=== PATIENT | female | born 1965 | race Two or more races ===

== ENCOUNTER 2022-04-15 12:20 | Outpatient (CLI) | payer OTHER | END 2022-04-15 12:30 | disposition home or self-care (01) | LOC: PPH VACUNA 12:20 | PROVIDERS: ATTEND Emergency Medicine Pediatric Emergency Medicine | DX: Z23 Encounter for immunization (principal) ==

== ENCOUNTER 2023-11-22 12:40 | Emergency (ER) | payer OTHER ==
[~2023-11-22] VITALS: Ht 160 cm; Wt 65.8 kg
[2023-11-22 15:15] LABS: URINE APPEARANCE Clear; URINE BILIRRUBIN Negative (NEGATIVE); URINE BLOOD Negative; URINE COLOR Yellow; URINE GLUCOSE Negative (NEGATIVE); URINE LEUKOCYTE Moderate; URINE NITRATE Negative; URINE PROTEIN Negative (NEGATIVE); URINE UROBILINOGEN 0.2 E.U./dl
[2023-11-22 15:18] LABS: URINE BACTERIA 512.7 uL (0.0-1933); URINE EPITHELIAL CELLS 12.6 uL (0.0-38.8); URINE RBC 2.8 uL (0.0-20.8); URINE WBC 68.7 uL (0.0-23.2)
[2023-11-22 15:18] LABS: HEMATOCRIT 42.9 % (36.0-45.00); HEMOGLOBIN 15.2 g/dL (12.0-15.00); MEAN CORPUSCULAR HEMOGLOBIN 36.6 pg (27.00-32.0); MEAN CORPUSCULAR HGB CONC 35.5 g/dl (32.0-36.0); PLATELET COUNT 239 K/uL (150-450); RED BLOOD COUNT 4.16 M/uL (4.00-6.00)
[2023-11-22 15:35] LABS: BILIRUBIN TOTAL 0.55 mg/dL (0.3-1.2); CALCIUM 9.8 mg/dL (8.5-10.1); CREATININE SERUM 0.7 mg/dL (0.55-1.02); GFR 85.65; GLOBULINA 3.8 G/DL (2.4-3.5); POTASSIUM 4.16 mEq/L (3.5-5.1); TOTAL PROTEIN 7.8 gm/dL (6.4-8.2)
== END 2023-11-22 18:33 | disposition home or self-care (01) ==
LOC: ER 12:41
PROVIDERS: General Practice
DX: N39.0 Urinary tract infection, site not specified (principal); K57.90 Diverticulosis of intestine, part unspecified, without perforation or abscess without bleeding